=== PATIENT | male | born 1965 | race Caucasian/White ===

== ENCOUNTER → 2023-09-04 | Outpatient (CLI) | payer OTHER, SELFPAY ==
--- NOTE | 2023-09-04 08:50 | RAD_ITS ---
STUDY: X-RAY CHEST REASON FOR EXAM: Male, 58 years old. PRE SNIFF TEST TECHNIQUE: Single PA view of the chest. COMPARISON: None. FINDINGS: Mild elevation of the right hemidiaphragm. Increased linear markings at the lung bases suggestive of either linear atelectasis and/or scarring. Blunting of the left cardiac phrenic angle. Normal size heart. Normal mediastinum and amanda. Normal visualized pulmonary arteries. There is atherosclerotic calcification of the aortic arch with tortuosity. There are diffuse degenerative changes of the visualized thoracic spine. Normal visualized ribs, clavicles, and shoulders. There is no demonstrated abnormality of the visualized soft tissue structures of the upper abdomen. RAD/Chest 1 View IMPRESSION: Mild increased markings at the lung bases with blunting of the left costophrenic angle. Findings are suggestive of either atelectasis and/or scarring. Electronically Signed: Angelito Munoz MD at 8:53 EST ,
--- NOTE | 2023-09-04 08:50 | RAD_ITS ---
PROCEDURE: Sniff test. DATE OF EXAMINATION: September 04, 2023. INDICATION: Male, 58 years old. Dyspnea. FLUOROSCOPY TIME (if supplied): (21 seconds) minutes/seconds. 9.29 mGy. 2 images were submitted. RAD/Fluoroscopy 1 Hr or Less IMPRESSION: No evidence of diaphragmatic paralysis. Electronically Signed: Angelito Munoz MD at 14:57 EST ,
== END | disposition home or self-care (01) ==
PROVIDERS: PCP Family Medicine; Referring Provider Internal Medicine Pulmonary Disease; Visit Provider Internal Medicine Pulmonary Disease
DX: R06.02 Shortness of breath (principal)
CPT/HCPCS: 71045; 76000